=== PATIENT | male | born 1975 | race Caucasian/White ===

== ENCOUNTER 2016-06-10 07:56 | Emergency (ER) | payer SELFPAY ==
[~2016-06-10] VITALS: Ht 172.7 cm; Wt 53.7 kg
[~2016-06-10 07:56] MED LIST: CARB6.5S5 LEFT EAR
[2016-06-10 08:01] VITALS: BP 111/71; PULSE 82; RESP 16; TEMP 98.9; O2SAT 100
[2016-06-10] MEDS ORDERED: BACT800T5 PO (08:19)
--- NOTE | 2016-06-10 08:20 | PD ---
HPI Chief Complaint: Skin Problem Time Seen by Provider: 08:07 Travel History International Travel<30 days: No Contact w/Intl Traveler<30days: No Traveled to known affect area: No History of Present Illness HPI This 40-year-old male is complaining of redness and swelling of his left wrist. He believes he got bit by a spider yesterday. He did not actually see a spider. He was working a long sleeved shirt and his arms over his head and felt a sting. He developed some redness and swelling. He squeezed it and some pus did come out. He says his tetanus is up-to-date PFS Past Medical History Asthma: No Blood Disorders: No Anxiety: Yes Depression: Yes Heart Rhythm Problems: No Cancer: No Cardiovascular Problems: No Chemotherapy: No Chest Pain: No Congestive Heart Failure: No COPD: No Diabetes: No Diminished Hearing: No Endocrine: No Genitourinary: No Hypertension: No Implanted Vascular Access Dvce: No Musculoskeletal: Yes (scoliosis) Neurologic: Yes (MULTIPLE SCLEROSIS) Psychiatric: No Reproductive: No Respiratory: No Immunizations Current: No Radiation Therapy: No Sleep Apnea: No Thyroid Disease: No Tetanus Vaccination: < 5 Years Influenza Vaccination: No Past Surgical History Oral Surgery: Yes (JAW SURGERY AT 4 YEARS OLD--JAW SURGERY 05/29) Other Surgery: Yes (STEEL PLATE IN JAW) Social History Alcohol Use: Yes (occasionally; last drink 2-3 shots liquor ) Tobacco Use: No Substance Use: No (hx cocaine, marijuana;) Allergies-Medications (Allergen,Severity, Reaction): Coded Allergies: No Known Allergies (Verified , 06/10/16) Reported Meds & Prescriptions Reported Meds & Active Scripts Active No Active Prescriptions or Reported Medications Review of Systems General / Constitutional: No: Fever, Chills Eyes: No: Drainage HENT: No: Rhinitis Cardiovascular: No: Chest Pain or Discomfort, Palpitations Respiratory: No: Shortness of Breath Genitourinary: No: Frequency Skin: Positive Rash Neurologic: No: Syncope Hematologic/Lymphatic: No: Easy Bruising Physical Exam Narrative GENERAL: Thin male SKIN: Warm and dry. He has multiple abrasions which he says it skateboarding. On the left forearm there is an area of erythema and minimal swelling. There is no drainage at this time. HEAD: Atraumatic. Normocephalic. EYES: Pupils equal and round. No scleral icterus. No injection or drainage. ENT: No nasal bleeding or discharge. Mucous membranes pink and moist. NECK: Trachea midline. No JVD. MUSCULOSKELETAL: No obvious deformities. No clubbing. No cyanosis. No edema. NEUROLOGICAL: Awake and alert. No obvious cranial nerve deficits. Motor grossly within normal limits. Normal speech. PSYCHIATRIC: Appropriate mood and affect; insight and judgment normal. Data Data Last Documented VS Vital Signs Date Time Temp Pulse Resp B/P Pulse Ox O2 Delivery O2 Flow Rate FiO2 06/10/16 08:01 98.9 82 16 111/71 100 Room Air MDM Medical Decision Making Medical Screen Exam Complete: Yes Emergency Medical Condition: Yes Medical Record Reviewed: Yes Differential Diagnosis Differential includes cellulitis, abscess, spider bite Narrative Course Examination is consistent with cellulitis. There is some mild swelling but I don't think there is a drainable abscess present. He'll be placed on Bactrim Diagnosis Primary Impression: Cellulitis of left arm Additional Instructions: soak affected area in warm water twice daily Scripts Sulfamethoxazole-Trimethoprim (Bactrim DS)800-160 Mg Tab1 Tab PO BID #20 TAB Ref 0 Prov:Darien Azar MD 06/10/16 Disposition: 01 DISCHARGE HOME Condition: Stable Darien Azar MD Jun 10, 2016 08:20
== END 2016-06-10 08:42 | disposition home or self-care (01) ==
LOC: PHEFT 07:56
DX: L03.114 Cellulitis of left upper limb (principal); G35 Multiple sclerosis; M41.9 Scoliosis, unspecified
CPT/HCPCS: 99282

== ENCOUNTER 2016-06-29 15:21 | Inpatient (IN) | payer OTHER ==
[~2016-06-29] VITALS: Ht 175.3 cm; Wt 59.3 kg
[~2016-06-29 15:21] MED LIST changes: +BACT800T5 PO; -CARB6.5S5 LEFT EAR
[2016-06-29 15:34] VITALS: BP 126/78; PULSE 64; RESP 20; TEMP 98.8; O2SAT 97
--- NOTE | 2016-06-29 16:39 | PD ---
HPI Chief Complaint: Psychiatric Symptoms Time Seen by Provider: 16:34 Travel History International Travel<30 days: No Contact w/Intl Traveler<30days: No Traveled to known affect area: No History of Present Illness HPI 40-year-old male that presents to the ED for evaluation of psych. Patient was EXPARTE by police after apparently there was a cut inspection and his residence and apparently they were concerned because they were going to clean and patient became very bizarre and agitated. Patient apparently has no history of psychiatric illness per patient. Per patient he takes care of everything "the natural away ". Per patient he denies any trauma. Patient was seen here 3 had this month for cellulitis and abscess that was drained and he states no problems with it. He does have a history of MS. He denies any weakness. No numbness, tilling, weakness. Denies any medical complaint to me. Takes no medications. Patient denies any drugs or alcohol. No allergies to medication. No other medical problems. Denies any suicidal or homicidal ideation to me but per expected patient used to have some sort of psychiatric counseling. PFSH Past Medical History Asthma: No Blood Disorders: No Anxiety: Yes Depression: Yes Heart Rhythm Problems: No Cancer: No Cardiovascular Problems: No Chemotherapy: No Chest Pain: No Congestive Heart Failure: No COPD: No Diabetes: No Patient Takes Glucophage: No Diminished Hearing: No Endocrine: No Genitourinary: No Hypertension: No Implanted Vascular Access Dvce: No Musculoskeletal: Yes (scoliosis) Neurologic: Yes (MULTIPLE SCLEROSIS) Psychiatric: No Reproductive: No Respiratory: No Immunizations Current: No Radiation Therapy: No Sleep Apnea: No Thyroid Disease: No Tetanus Vaccination: Unknown Past Surgical History Oral Surgery: Yes (wired mandible) Other Surgery: Yes (STEEL PLATE IN JAW) Social History Alcohol Use: No Tobacco Use: No Substance Use: No Allergies-Medications (Allergen,Severity, Reaction): Coded Allergies: No Known Allergies (Verified , 06/10/16) Reported Meds & Prescriptions Reported Meds & Active Scripts Active Review of Systems Except as stated in HPI: all other systems reviewed are Neg Physical Exam Narrative GENERAL: SKIN: Warm and dry. Patient has some old wounds on his arms and legs that appear to be healing. HEAD: Atraumatic. Normocephalic. EYES: Pupils equal and round. No scleral icterus. No injection or drainage. ENT: No nasal bleeding or discharge. Mucous membranes pink and moist. Tongue is midline. No uvula deviation. NECK: Trachea midline. No JVD. CARDIOVASCULAR: Regular rate and rhythm. No murmurs, S3, S4. RESPIRATORY: No accessory muscle use. Clear to auscultation. Breath sounds equal bilaterally. GASTROINTESTINAL: Abdomen soft, non-tender, nondistended. Hepatic and splenic margins not palpable. MUSCULOSKELETAL: Extremities without clubbing, cyanosis, or edema. No obvious deformities. Full range of motion of the upper and lower extremities bilaterally. 2+ pulses bilaterally. NEUROLOGICAL: Awake and alert. No obvious cranial nerve deficits. Motor grossly within normal limits. Five out of 5 muscle strength in the arms and legs. Normal speech. PSYCHIATRIC: Bizarre possibly psychotic mood and affect; insight and judgment questionable at this time. Patient fluctuates between anger and calm. Data Data Last Documented VS Vital Signs Date Time Temp Pulse Resp B/P Pulse Ox O2 Delivery O2 Flow Rate FiO2 06/29/16 15:34 98.8 64 20 126/78 97 Orders Diet Regular Basic (06/29/16 Dinner) Psych Screen (06/29/16 15:33) Complete Blood Count With Diff (06/29/16 15:42) Comprehensive Metabolic Panel (06/29/16 15:42) Drug Screen, Random Urine (06/29/16 15:42) Alcohol (Ethanol) (06/29/16 15:42) MDM Medical Decision Making Medical Screen Exam Complete: Yes Emergency Medical Condition: Yes Medical Record Reviewed: Yes Differential Diagnosis Depression versus suicidal ideation versus anxiety versus adjustment disorder versus mood disorder versus bipolar disorder versus schizophrenia versus paranoid disorder versus psychosis versus substance abuse versus alcohol abuse versus alcohol induced psychosis versus homicidality addition versus cutting versus personality disorder Narrative Course 40-year-old male that presents to the ED for evaluation of psych. Patient was properly examined and was found to have signs and symptoms consistent appears to be psychiatric illness. No sign of acute medical distress. Labs and psych screening order. Patient was medically clear. Okay to be seen by psych. Mental health screening was discussed with the patient. Diagnosis Primary Impression: Mood disorder Victor Manuel Syed Jun 29, 2016 16:39
[2016-06-29 18:15] VITALS: BP 117/65; PULSE 81; RESP 18
[2016-06-29 23:29] VITALS: BP 121/69; PULSE 90; RESP 18; O2SAT 100
[2016-06-30 02:30] VITALS: BP 114/77; PULSE 91; RESP 18; TEMP 97.9; O2SAT 99
[2016-06-30 06:30] VITALS: BP 119/75; PULSE 66; RESP 18; TEMP 97.5; O2SAT 99
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
[2016-06-30 14:00] VITALS: BP 99/64; PULSE 65; RESP 18
[2016-06-30] MEDS ORDERED: MAGNESIUM HYDROXIDE SUSP 30 ML CUP PO PRN (14:00)
[2016-06-30] MEDS ORDERED: ALUMINUM/MAGNESIUM/SIMETH 30 ML CUP PO PRN (14:00)
[2016-06-30] MEDS ORDERED: ACETAMINOPHEN 325 MG TAB PO PRN (14:00)
[2016-06-30 14:35] VITALS: BP 115/68; PULSE 74; RESP 20; TEMP 98; O2SAT 99
[2016-06-30 15:03] VITALS: BP 99/64; PULSE 68; RESP 18
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
[2016-06-30 19:18] VITALS: BP 118/60; PULSE 87; RESP 16; TEMP 98.2; O2SAT 98
[2016-07-01 06:07] VITALS: BP 113/63; PULSE 75; RESP 16; TEMP 98.2; O2SAT 100
[2016-07-01 09:13] LABS: AUTOMATED NEUTROPHIL # 4.9 TH/MM3 (1.8-7.7); BASOPHIL % 0.4 % (0.0-2.0); EOSINOPHIL # 0.3 TH/MM3 (0-0.4); HEMATOCRIT 39.8 % (39.0-51.0); HEMO FLAGS DIFF FINAL; LYMPH % 21.1 % (9.0-44.0); LYMPHOCYTE # 1.5 TH/MM3 (1.0-4.8); MEAN CELL VOLUME 89.7 FL (80.0-100.0); MEAN CORPUSCULAR HEMOGLOBIN 29.5 PG (27.0-34.0); MEAN CORPUSCULAR HGB CONC 32.8 % (32.0-36.0); MONO % 6.5 % (0.0-8.0); PLATELET COUNT 366 TH/MM3 (150-450); RED BLOOD COUNT 4.43 MIL/MM3 (4.50-5.90); WHITE BLOOD COUNT 7.2 TH/MM3 (4.0-11.0)
[2016-07-01 09:49] LABS: ALKALINE PHOSPHATASE 84 U/L (45-117); ALT (GPT) 22 U/L (12-78); ANION GAP 9 MEQ/L (5-15); AST (GOT) 21 U/L (15-37); BICARBONATE 29.4 MEQ/L (21.0-32.0); BLOOD UREA NITROGEN 12 MG/DL (7-18); CHLORIDE 102 MEQ/L (98-107); GLOMERULAR FILTRATION RATE 110 ML/MIN (>89); HDL CHOLESTEROL 57.5 MG/DL (40.0-60.0); LDL CHOLESTEROL 48 MG/DL (0-99); POTASSIUM 4.1 MEQ/L (3.5-5.1); SODIUM (NA) 140 MEQ/L (136-145); TOTAL BILIRUBIN ADULT 0.3 MG/DL (0.2-1.0)
[2016-07-01 10:13] LABS: HEMOGLOBIN A1a 1.2 %; HEMOGLOBIN A1b 0.8 %; HEMOGLOBIN Ao 85.7 %; HEMOGLOBIN LA1C 1.9 %; HEMOGLOBIN P3 3.5 %
--- NOTE | 2016-07-01 12:48 | HHI.PYPN ---
Subjective Remarks Pt seen and discussed with staff. Pt has been refusing labs, vitals and medications. RN reports that pt has been rambling on about artificial intelligence being a tool of the devil and 6. He is quite grandiose during interview and offers to break dance for MD. He admits to hoarding behaviors but states that he doesn't want medications or treatments. "I skateboard. I'm an extremist. I skateboard for [place] and I don't need medications." He denies SI/HI. Objective Alert: Yes [place]: Person, Place, Date, Situation Mood: Other (elevated) Affect: Labile Memory Intact: Comment (not formally tetsed) Hallucinations: Other (denies) Delusions: Yes Delusion Type: Paranoid Suicidal: Ideation (denies) Homicidal: Ideation (denies) Insight/Judgement poor Labs Test 07/01/16 08:53 White Blood Count 7.2 TH/MM3 Red Blood Count 4.43 MIL/MM3 Hemoglobin 13.0 GM/DL Hematocrit 39.8 % Mean Corpuscular Volume 89.7 FL Mean Corpuscular Hemoglobin 29.5 PG Mean Corpuscular Hemoglobin 32.8 % Concent Red Cell Distribution Width 14.0 % Platelet Count 366 TH/MM3 Mean Platelet Volume 7.5 FL Neutrophils (%) (Auto) 68.0 % Lymphocytes (%) (Auto) 21.1 % Monocytes (%) (Auto) 6.5 % Eosinophils (%) (Auto) 4.0 % Basophils (%) (Auto) 0.4 % Neutrophils # (Auto) 4.9 TH/MM3 Lymphocytes # (Auto) 1.5 TH/MM3 Monocytes # (Auto) 0.5 TH/MM3 Eosinophils # (Auto) 0.3 TH/MM3 Basophils # (Auto) 0.0 TH/MM3 CBC Comment DIFF FINAL Differential Comment Sodium Level 140 MEQ/L Potassium Level 4.1 MEQ/L Chloride Level 102 MEQ/L Carbon Dioxide Level 29.4 MEQ/L Anion Gap 9 MEQ/L Blood Urea Nitrogen 12 MG/DL Creatinine 0.78 MG/DL Estimat Glomerular Filtration 110 ML/MIN Rate Random Glucose 73 MG/DL Hemoglobin A1c 5.4 % Calcium Level 8.3 MG/DL Total Bilirubin 0.3 MG/DL Aspartate Amino Transf 21 U/L (AST/SGOT) Alanine Aminotransferase 22 U/L (ALT/SGPT) Alkaline Phosphatase 84 U/L Total Protein 6.8 GM/DL Albumin 3.2 GM/DL Triglycerides Level 64 MG/DL Cholesterol Level 118 MG/DL LDL Cholesterol 48 MG/DL HDL Cholesterol 57.5 MG/DL Cholesterol/HDL Ratio 2.05 RATIO Ethyl Alcohol Level LESS THAN 3 MG/DL Vitals/IOs Vital Signs Date Time Temp Pulse Resp B/P Pulse Ox O2 Delivery O2 Flow Rate FiO2 07/01/16 06:07 98.2 75 16 113/63 100 06/30/16 15:03 Room Air Assessment & Plan Problem List: (1) schizo affective dis. Bipolar type Assessment & Plan Continue to encourage treatment compliance. Estimated LOS: days Justification for Cont. Inpt. impairments in reality construction and safety Request HC Surrog/Guard Advoc?: Jenny Nguyen MD Jul 01, 2016 12:48
[2016-07-01 19:37] VITALS: BP 109/72; PULSE 82; RESP 17; TEMP 98; O2SAT 100
[2016-07-02 05:30] VITALS: BP 116/65; PULSE 66; RESP 18; TEMP 97.7
[2016-07-02 07:43] LABS: AMPHETAMINE, URINE NEG (NEG); BARBITURATES, URINE NEG (NEG); COCAINE, URINE NEG (NEG)
--- NOTE | 2016-07-02 11:30 | HHI.PYPN ---
Subjective Remarks Patient seen and examined with counselor. Chart reviewed. I note the patient was brought in initially under an ex parte order initiated by his mother. I have reviewed disorder in some detail. Case discussed with nursing staff who reports patient has been break dancing and generally engaging in manic behavior on the unit. On my examination today, the patient presents as fairly dysphoric and irritable. He denies the allegations in the ex parte order and says that if there are any issues in the home its caused by his parents. He threatens violence if people do not "stay out of my [employer] business." He says that his daughter and girlfriend 5 years ago, which apparently is factual, but he has developed a delusional frame around this, perseverating on the number 3, noting, "#3 is the father, son and holy ghost. Han Waters was #3. He on a Saturday and my daughter on a Saturday. My girlfriend had 3 heart attacks." He also blames [facility] for both his daughter and girlfriend's passing, believing that they are engaged in some sort of coverup, "like worldhistory[employer]." His insight into mental illness is nil, and he says that he will decline any psychotropic medications. Review of Systems ROS Limitations: Psychotic, Poor Historian Other No physical complaints today Objective Alert: Yes [place]: Person, Place, Date Mood: Angry, Other (irritable) Affect: Restricted (dysphoric) Memory Intact: Comment (not formally assessed today) Hallucinations: Other (none) Delusions: Yes Delusion Type: Paranoid (ongoing, systematized) Suicidal: Ideation (denies) Homicidal: Ideation (denies) Insight/Judgement Poor Remarks No motoric abnormalities noted. Thought process fairly linear within delusional system. Speech a little bit loud and angry. Labs Test 07/02/16 07:00 Urine Opiates Screen NEG Urine Barbiturates Screen NEG Urine Amphetamines Screen NEG Urine Benzodiazepines Screen NEG Urine Cocaine Screen NEG Urine Cannabinoids Screen NEG Labs reviewed. Vitals/IOs Vital Signs Date Time Temp Pulse Resp B/P Pulse Ox O2 Delivery O2 Flow Rate FiO2 07/02/16 05:30 97.7 66 18 116/65 07/01/16 19:37 100 1/21/17 15:03 Room Air Assessment & Plan Problem List: (1) Bipolar disorder Assessment & Plan: Rule out schizoaffective disorder, bipolar type ICD Code: F31.9 Assessment & Plan The form of patient's mental illness presently seems to be a mixed state, severely decompensated with psychotic features. I do see that Dr. Oh diagnosed schizoaffective disorder, and this may prove to be the true diagnosis , but for the time being I will give the patient bipolar disorder with a rule out of schizoaffective disorder. I will initiate a petition for involuntary psychiatric hospitalization in consult for a second. I will request a healthcare surrogate and guardian advocate. I will initiate Zyprexa 10 mg at bedtime I mouth with IM backup. I will also start Ativan and Benadryl as needed for agitation and EPS, respectively. Continue other medications and care as ordered. Justification for Cont. Inpt. Impairments in safety, reality construction, social functioning, medication changes and process, high risk for decompensation in a less restrictive environment. Discharge Planning Pending psychiatric stabilization Request HC Surrog/Guard Advoc?: Yes Problem Qualifiers (1) Bipolar disorder: Qualified Code: F31.64 - Bipolar disorder, current episode mixed, severe, with psychotic features Donald Campos MD Jul 02, 2016 11:30
[2016-07-02] MEDS ORDERED: LORazepam 2 MG/ML VIAL IM PRN (13:15)
[2016-07-02] MEDS ORDERED: diphenhydrAMINE HCL 50 MG/ML VIAL IM PRN (13:15)
[2016-07-02] MEDS ORDERED: LORazepam 1 MG TAB PO PRN (13:15)
[2016-07-02] MEDS ORDERED: diphenhydrAMINE HCL 50 MG CAP PO PRN (13:15)
[2016-07-02] MEDS ORDERED: OLANZapine IM 10 MG VIAL IM PRN (13:15)
[2016-07-02 20:32] VITALS: BP 106/56; PULSE 74; RESP 18; TEMP 98; O2SAT 96
[2016-07-02] MEDS: OLANZapine ODT 10 MG TAB PO SCH (21:00)
[2016-07-03 05:58] VITALS: BP 103/64; PULSE 77; RESP 18; TEMP 98; O2SAT 96
[2016-07-03] MEDS ORDERED: diphenhydrAMINE HCL 50 MG/ML VIAL IM STA (07:45)
[2016-07-03] MEDS ORDERED: LORazepam 2 MG/ML VIAL IM STA (07:45)
[2016-07-03] MEDS ORDERED: OLANZapine IM 10 MG VIAL IM STA (07:45)
--- NOTE | 2016-07-03 07:56 | PD.CONS ---
Provisional Diagnosis Admission Date Jun 30, 2016 at 13:59 [place] I. Schizoaffective disorder Rap[place] II. Paranoid trait Rapidan III. Please see the emergency room evaluation Rap[place] IV. Moderate stress Rapidan V. GAF of 45 History of Present Illness Service Psychiatry Consult Requested By Primary Care Physician No Primary Care Physician HPI This is a 40-year-old white male who was admitted under ex parte today initiated by his mother reportedly patient has history of mood swings he has threatened the court enforcement officers stating that he will be discharged out of them. He wants to also kill himself. Patient has been getting easily agitated and is not cooperative and refuses to take the medication and/or cooperative with the lab work. Reportedly most of the night he spent talking to himself and singing and pacing in his room. Patient reported that his his family drives in [place] crazy. And his mother is also crazy woman. 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 Patient also was preoccupied about the of his daughter and his girlfriend. Patient was pretty occupied about #3 and #6. Mormonism and devil. He does not want to stay in the hospital he wanted to leave because he believes that his mother is going to sell things that belongs to him. Patient denied any suicidal and/or homicidal ideation intentions or plan but according to the ex parte he had threatened the last code striper. Patient claimed that in the past he had taken Zoloft. But he does not wish to take any medication. He has multiple sclerosis. And had taken steroids to calm the inflammation of his eyes down. 07/03/16 Above note dictated by Dr. Campos reviewed and agreed with. Patient 40-year- old white male admitted to Dr. Campos service under the [place] act. Chart reviewed. Patient seen by me in his room on the short haul unit 2700 patient loud profane markedly paranoid screaming and yelling the "F" word multiple times threatening to "beat this shit" out of me if I kept bothering him. Dr. Campos 's sign first opinion petition supporting [place]. I agree patient meets criteria for involuntary psychiatric hospitalization under the [place]. Thus I will cosign second opinion petition supporting [place] Past Family Social History Coded Allergies: No Known Allergies (Verified , 06/10/16) Discontinued Scripts Sulfamethoxazole-Trimethoprim (Bactrim DS)800-160 Mg Tab1 Tab PO BID #20 TAB Ref 0 Prov:Darien Azar MD 06/10/16 Current Medications Medications (Trade) Dose Ordered Sig/Александр Route Start Time Stop Time Status Last Admin (Tylenol) 650 mg Q4H PRN PO 06/30/16 14:00 (Milk Of Magnesia Liq) 30 ml DAILY PRN PO 06/30/16 14:00 (Mag-Al Plus Susp Liq) 30 ml Q6H PRN PO 06/30/16 14:00 (Ativan) 1 mg Q6H PRN PO 07/02/16 13:15 (Ativan Inj) 1 mg Q6H PRN IM 07/02/16 13:15 (Benadryl) 50 mg Q6H PRN PO 07/02/16 13:15 (Benadryl Inj) 50 mg Q6H PRN IM 07/02/16 13:15 (ZyPREXA ZYDIS ODT) 10 mg HS PO 07/02/16 21:00 (ZyPREXA INJ) 10 mg HS PRN IM 07/02/16 13:15 Patient's Strengths (min. 2) Patient is verbal and partially cooperative Physical Exam Vital Signs Vital Signs Date Time Temp Pulse Resp B/P Pulse Ox O2 Delivery O2 Flow Rate FiO2 07/03/16 05:58 98.0 77 18 103/64 96 06/30/16 15:03 Room Air Mental Status Examination Alert angry markedly profane threatening intimidating thin slender short white male with intense eye contact loud with rapid pressured speech Appearance Somewhat disheveled Speech: Pressured, Rapid, Tangential Orientation: Person, Place Memory: Unremarkable Thought Process: Linear Thought Content: Paranoid Hallucination Type: None (denies) Attention and Concentration: Easily Distracted Suicidal Ideation: No (denies) Previous Suicide Attempts: No Homicidal Ideation: Yes (made threatening statements towards me) Previous Homicide Attempts: No (denies) Insight: Poor Judgement: Poor Affect: Other (marked increase range and intensity) Mood: Angry, Irritable, Manic Motor Activity: Normal gait Assessment & Plan Problem List: (1) Bipolar disorder ICD Code: F31.9 Assessment & Plan Estimated LOS: days Request HC Surrog/Guard Advoc?: Yes Problem Qualifiers (1) Bipolar disorder: Qualified Code: F31.64 - Bipolar disorder, current episode mixed, severe, with psychotic features Bret Neal MD Jul 03, 2016 07:56
--- NOTE | 2016-07-03 09:12 | HHI.PYPN ---
Subjective Remarks Patient seen and examined with counselor. Chart reviewed. Case discussed in treatment team. Per nursing staff, patient became severely agitated when Dr. Neal was in earlier today to do the second opinion for involuntary psychiatric hospitalization, and the patient required medication with Zyprexa ETO. Per occupational therapy, the patient has been unable to tolerate groups because of his degree of psychiatric impairment. On my examination this morning , the patient is fairly sedated, likely as a consequence of the ETO he received. He is in no acute physical distress and his breathing is unlabored. He arouses briefly to voice before lapsing back to sleep. I did endeavor with counselor to reach out to patient's aunt, Ms. Velez, as well as mother, whose number is listed in the ex parte as [phone]. In the former case there was no answer. In the latter case, an older-sounding female answered but said that she had initiated an ex parte order against her , a Mr. Hedrick. We did not give this female any identifying information regarding the patient. Review of Systems ROS Limitations: Other (Sedated) Other Unable to obtain. Objective Alert: No (sedated) [place]: Person (arouses to name) Mood: Other (Unable to ascertain) Affect: Flat Memory Intact: Comment (Not assessed) Hallucinations: Other (Unable to ascertain) Delusions: No Delusion Type: Other (Unable to ascertain) Suicidal: Ideation (Unable to ascertain) Homicidal: Ideation (Unable to ascertain) Insight/Judgement Presently absent Remarks No motoric abnormalities noted. Patient is in no physical distress. Labs Labs reviewed. Vitals/IOs Vital Signs Date Time Temp Pulse Resp B/P Pulse Ox O2 Delivery O2 Flow Rate FiO2 07/03/16 05:58 98.0 77 18 103/64 96 06/30/16 15:03 Room Air Assessment & Plan Problem List: (1) Bipolar disorder ICD Code: F31.9 Assessment & Plan Awaiting consents for scheduled psychotropics. We will continue to try to obtain an HCS and collateral. Continue other care as ordered. Justification for Cont. Inpt. Impairments in safety, social function, reality construction. Risk for decompensation. Discharge Planning Pending psychiatric stabilization. Request HC Surrog/Guard Advoc?: Yes Problem Qualifiers (1) Bipolar disorder: Qualified Code: F31.64 - Bipolar disorder, current episode mixed, severe, with psychotic features Donald Campos MD Jul 03, 2016 09:12
[2016-07-03 18:14] VITALS: BP 92/56; PULSE 69; RESP 17; O2SAT 100
[2016-07-03] MEDS: OLANZapine ODT 10 MG TAB PO SCH (21:00)
[2016-07-04 06:12] VITALS: BP 120/59; PULSE 67; RESP 16; TEMP 98.5; O2SAT 100
--- NOTE | 2016-07-04 11:31 | HHI.PYPN ---
Subjective Remarks Patient seen and examined with counselor. Chart reviewed. Scheduled Zyprexa was not administered last night due to sedation, likely from the ETO he received yesterday during the day. Case discussed with nursing staff who reports patient remains quite irritable but is visible on the unit. On my examination today, the patient presents as paranoid and still fairly irritable. He continues to perseverate on the role of the number 3 "at certain moments in my life." Believes that treatment team is in cahoots with [facility], which organization he blames for his daughter's . No evident side effects from medications at this time. Review of Systems ROS Limitations: Poor Historian Other No physical complaints today. Objective Alert: Yes [place]: Person, Place Mood: Angry, Oppositional Affect: Restricted (dysphoric, irritable) Memory Intact: Comment (Not formally assessed) Hallucinations: Other (No AVH) Delusions: Yes Delusion Type: Paranoid Suicidal: Ideation (No SI voiced but unreliable to contract for safety.) Homicidal: Ideation (No HI voiced) Insight/Judgement Poor Remarks No abnormal motor movements noted. TP linear within delusional system. Speech terse, angry. Labs Labs reviewed. No new labs. Vitals/IOs Vital Signs Date Time Temp Pulse Resp B/P Pulse Ox O2 Delivery O2 Flow Rate FiO2 07/04/16 06:12 98.5 67 16 120/59 100 06/30/16 15:03 Room Air Assessment & Plan Problem List: (1) Bipolar disorder ICD Code: F31.9 Assessment & Plan Administer first scheduled dose of Zyprexa tonight with plans to titrate so long as this is not too sedating in the morning. If it is, we could consider dividing the dose. Continue other medications and care as ordered. Justification for Cont. Inpt. Concern for safety impairments. Impairment in social function. Risk for decompensation. Discharge Planning Pending psychiatric stabilization. [place] court tomorrow. Request HC Surrog/Guard Advoc?: Yes Problem Qualifiers (1) Bipolar disorder: Qualified Code: F31.64 - Bipolar disorder, current episode mixed, severe, with psychotic features Donald Campos MD Jul 04, 2016 11:31
[2016-07-04 19:48] VITALS: BP 101/50; PULSE 83; RESP 16; TEMP 98.7
[2016-07-04] MEDS: OLANZapine ODT 10 MG TAB PO SCH (20:17)
[2016-07-05 06:01] VITALS: BP 105/66; PULSE 92; RESP 18; TEMP 98.3
--- NOTE | 2016-07-05 11:10 | HHI.DS ---
Psychiatry Discharge Summary Inpatient Psychiatric care?: Yes Advance Directive: No Reason Not Provided: DOES NOT HAVE Mental Health AdvanceDirective: No Health Care Proxy: No Admission Admission Date Jun 30, 2016 at 13:59 Admission Diagnosis: (1) schizo affective dis. Bipolar type Brief History This is a 40-year-old white male who was admitted under ex parte today initiated by his mother reportedly patient has history of mood swings he has threatened the court enforcement officers stating that he will be discharged out of them. He wants to also kill himself. Patient has been getting easily agitated and is not cooperative and refuses to take the medication and/or cooperative with the lab work. Reportedly most of the night he spent talking to himself and singing and pacing in his room. Patient reported that his his family drives in [place] crazy. And his mother is also crazy woman. 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 Patient also was preoccupied about the of his daughter and his girlfriend. Patient was pretty occupied about #3 and #6. Synagogue and devil. He does not want to stay in the hospital he wanted to leave because he believes that his mother is going to sell things that belongs to him. Patient denied any suicidal and/or homicidal ideation intentions or plan but according to the ex parte he had threatened the code and test clerk. Patient claimed that in the past he had taken Zoloft. But he does not wish to take any medication. He has multiple sclerosis. And had taken steroids to calm the inflammation of his eyes down. 07/03/16 Above note dictated by Dr. Campos reviewed and agreed with. Patient 40-year- old white male admitted to Dr. Campos service under the [place] act. Chart reviewed. Patient seen by me in his room on the short haul unit 2700 patient loud profane markedly paranoid screaming and yelling the "F" word multiple times threatening to "beat this shit" out of me if I kept bothering him. Dr. Campos 's sign first opinion petition supporting [place]. I agree patient meets criteria for involuntary psychiatric hospitalization under the [place] act. Thus I will cosign second opinion petition supporting [place] Tobacco Use In Past 30 Days: Refused To Answer Alcohol Use: Never (Per Dr. Rosas's note, h/o alcohol abuse) Hospital Course Patient was admitted to a locked, inpatient psychiatric unit. Appropriate precautions were in place throughout patient's hospital stay. Patient was seen and examined daily on the unit by psychiatry and also visited by counselor. Patient declined psychotropic medications and received none except what he was given by emergency treatment order. He remained paranoid and quite irritable on the unit. His insight into mental illness was quite poor. The patient's case was presented to the [place] court today and the presiding judge has ordered his release from the inpatient psychiatric unit. I have lodged my grave objection to this decision in the record as I feel that the patient's irritability and ongoing psychosis placed him at elevated risk for harm to others in the community. The patient is unwilling to remain on the inpatient psychiatric unit voluntarily and so will be discharged AGAINST MEDICAL ADVICE today by court order. Results Blood Pressure 105 / 66 Vital Signs Date Time Temp Pulse Resp B/P Pulse Ox O2 Delivery O2 Flow Rate FiO2 07/05/16 06:01 98.3 92 18 105/66 07/04/16 06:12 100 Laboratory Results Test 07/01/16 08:53 Hemoglobin A1c 5.4 % (4.3-6.0) Triglycerides Level 64 MG/DL (42-150) Cholesterol Level 118 MG/DL (120-200) LDL Cholesterol 48 MG/DL (0-99) HDL Cholesterol 57.5 MG/DL (40.0-60.0) Summary of Procedures None done Imaging None done Pending results at discharge: No Medications # of Antipsychotic meds at D/C: 0 Approp Antipsych med options 1 - Minimum of three failed multiple trials of monotherapy. 2 - Documented plan to taper to monotherapy due to previous use of multiple meds OR cross-taper in progress at D/C. 3 - Documentation of augmentation of Clozapine. 4 - Justification other than those listed in allowable values 1-3, document here : Discharge Discharge Date: Jul 05, 2016 Discharge Diagnosis: (1) Bipolar disorder ICD Code: F31.9 Rule out schizoaffective disorder, bipolar type Mental Status Exam at Disch Patient is casually dressed. He is somewhat disheveled but appears to be maintaining basic hygiene. He is awake and alert and oriented to person and hospital at least. No abnormal motor movements noted although the patient is somewhat hyperkinetic and begins to dance frenetically on the unit once he learns that he is to be discharged. Speech is somewhat terse. Mood is dysphoric and affect is restricted and irritable. Thought process linear. Paranoid delusions persist. The patient reports no AVH. He does not describe any suicidal or homicidal ideation but is unreliable to contract for safety in my opinion. Insight and judgment, I fear, are poor. Pt Condition on Discharge: Guarded Discharge Disposition: Discharge Home Discharge Instructions Diet Instructions: As Tolerated, No Restrictions Activities you can perform: Weight Bearing as Eezkiel Scheduled Appointment: refuses Discharge Time <= 30 minutes Discharge/Advance Care Plan Health Problems: (1) Bipolar disorder Goals to promote your health * To prevent worsening of your condition and complications * To maintain your health at the optimal level Directions to meet your goals Take your medications as prescribed Follow your dietary instruction Follow activity as directed Keep your appointments as scheduled Take your immunizations and boosters as scheduled If your symptoms worsen call your PCP, if no PCP go to Urgent Care Center or Emergency Room For 31/12 questions related to your inpatient stay or results of tests pending at discharge, please contact Dr. Donald Campos at Smoking is Dangerous to Your Health. Avoid second hand smoking Problem Qualifiers (1) Bipolar disorder: Qualified Code: F31.64 - Bipolar disorder, current episode mixed, severe, with psychotic features Donald Campos MD Jul 05, 2016 11:10
== END 2016-07-05 12:10 | disposition left against medical advice (07) | DRG 885 ==
LOC: NEPJ 15:21 → NEDA 06-30 13:59 → H270 06-30 14:25
PROVIDERS: ADMIT Psychiatry & Neurology Psychiatry; ATTEND Psychiatry & Neurology Psychiatry
DX: F25.0 Schizoaffective disorder, bipolar type (principal); G35 Multiple sclerosis; F11.10 Opioid abuse, uncomplicated; M41.9 Scoliosis, unspecified; F10.10 Alcohol abuse, uncomplicated; F14.10 Cocaine abuse, uncomplicated; Z62.810 Personal history of physical and sexual abuse in childhood; Y90.0 Blood alcohol level of less than 20 mg/100 ml
CPT/HCPCS: 80053; 80061; 80307; 80320; 83036; 85025; 99284; J1200; J2060

== ENCOUNTER 2017-05-01 11:35 | Emergency (ER) | payer SELFPAY ==
[~2017-05-01] VITALS: Ht 172.7 cm; Wt 57.8 kg
[2017-05-01 11:47] VITALS: BP 116/72; PULSE 71; RESP 18; TEMP 98.3; O2SAT 96
--- NOTE | 2017-05-01 13:13 | RADRPT ---
EXAM DATE/TIME: 05/01/2017 12:46 [facility] COMPARISON: FOREARM RIGHT (2VWS), October 08, 2015, 21:21. INDICATIONS : Right forearm pain and laceration, cut on a piece of fiber glass. MEDICAL HISTORY : Multiple sclerosis. rt foream fx, rt wrist fx SURGICAL HISTORY : None. ENCOUNTER: Initial ACUITY: 1 day PAIN SCORE: 7/10 LOCATION: Right forearm FINDINGS: Acute fracture is not seen. There is a healed fracture deformity at the mid radius. Also appears be s ome deformity from healed fracture at the fifth metacarpal. The elbow and wrist joints are normally a ligned. Some hypertrophic change at the base of the first metacarpal. No foreign body seen. CONCLUSION: No acute abnormality is seen. There is chronic change described above. Bret Rangel MD on May 01, 2017 at 13:10 Board Certified Radiologist. This report was verified electronically.
--- NOTE | 2017-05-01 13:51 | PD ---
HPI Chief Complaint: Laceration/Skin Injury Time Seen by Provider: 12:44 Travel History International Travel<30 days: No Contact w/Intl Traveler<30days: No Traveled to known affect area: No History of Present Illness HPI 41-year-old male here with laceration to his right upper extremity caused by broken plexiglass. Patient has an approximately 2 cm flap laceration to the right forearm volar aspect. Patient has full range of motion and normal sensation of the extremity. Bleeding is well-controlled. PFSH Past Medical History Asthma: No Blood Disorders: No Anxiety: Yes Depression: Yes Heart Rhythm Problems: No Chemotherapy: No Chest Pain: No Congestive Heart Failure: No COPD: No Diminished Hearing: No Endocrine: No Genitourinary: No Hypertension: No Implanted Vascular Access Dvce: Yes Musculoskeletal: Yes (scoliosis) Neurologic: Yes (MULTIPLE SCLEROSIS) Psychiatric: Yes (PTSD) Reproductive: No Respiratory: No Immunizations Current: No Radiation Therapy: No Sleep Apnea: No Thyroid Disease: No Tetanus Vaccination: Unknown Influenza Vaccination: No Past Surgical History Oral Surgery: Yes (wired mandible) Other Surgery: Yes (STEEL PLATE IN JAW) Social History Alcohol Use: No Tobacco Use: No Substance Use: No (Former smoking of cocaine and meth) Allergies-Medications (Allergen,Severity, Reaction): Coded Allergies: No Known Allergies (Verified Adverse Reaction, Unknown, 05/01/17) Reported Meds & Prescriptions Reported Meds & Active Scripts Active No Active Prescriptions or Reported Medications Review of Systems Except as stated in HPI: all other systems reviewed are Neg Physical Exam Narrative GENERAL: Well-nourished, well-developed patient. SKIN: Focused skin assessment warm/dry. HEAD: Normocephalic. EYES: No scleral icterus. No injection or drainage. NECK: Supple, trachea midline. No JVD or lymphadenopathy. CARDIOVASCULAR: Regular rate and rhythm without murmurs, gallops, or rubs. RESPIRATORY: Breath sounds equal bilaterally. No accessory muscle use. GASTROINTESTINAL: Abdomen soft, non-tender, nondistended. MUSCULOSKELETAL: No cyanosis, or edema. Attention to the right upper extremity 2 cm flap laceration to the forearm volar aspect. No underlying tendon or vascular injury. Patient has full range of motion and normal sensation of the wrist and fingers. Data Data Last Documented VS Vital Signs Date Time Temp Pulse Resp B/P (MAP) Pulse Ox O2 Delivery O2 Flow Rate FiO2 05/01/17 11:47 98.3 71 18 116/72 (87) 96 Orders Orders Forearm (2vws) (05/01/17 ) MDM Medical Decision Making Medical Screen Exam Complete: Yes Emergency Medical Condition: Yes Differential Diagnosis Laceration, tendon laceration, abrasion or retained foreign body Narrative Course 41-year-old male here with laceration to his right upper extremity caused by broken plexiglass. Patient has an approximately 2 cm flap laceration to the right forearm volar aspect. There is no underlying tendon or vascular injury. Patient has full range of motion and normal sensation distal from the laceration. X-ray was negative for retained foreign body. Laceration repair performed. Patient tolerated procedure well. Procedures Procedure Narrative LACERATION LOCATION: Right forearm LENGTH: 2 cm flap lack NUMBER OF STITCHES/MARIALUISA: 3 REPAIR: The area of the laceration was prepped with Betadine and sterilely draped. The laceration was infiltrated with 1% lidocaine. The wound was copiously irrigated and explored without evidence of foreign body, tendon injury or neurovascular injury. The wound was closed using 4-0 Prolene. This was a single layer repair. A sterile dressing was applied. The patient was advised to keep the dressing clean and dry. Patient tolerated the procedure well. Diagnosis Primary Impression: Laceration of right upper extremity Qualified Codes: S41.111A - Laceration without foreign body of right upper arm , initial encounter Referrals: [facility] Additional Instructions: Sutures need to be removed in 7-10 days. Cleansed the area daily with soap and water. Return to the emergency department if he developed new or worsening symptoms. Scripts No Active Prescriptions or Reported Meds Disposition: 01 DISCHARGE HOME Condition: Stable RockchavezYessy ALLISON May 01, 2017 13:51
== END 2017-05-01 14:00 | disposition home or self-care (01) ==
LOC: PHEFT 11:35
DX: S51.811A Laceration without foreign body of right forearm, initial encounter (principal); F43.10 Post-traumatic stress disorder, unspecified; G35 Multiple sclerosis; W25.XXXA Contact with sharp glass, initial encounter
CPT/HCPCS: 12001; 73090

== ENCOUNTER 2017-06-03 11:53 | Emergency (ER) | payer SELFPAY ==
[~2017-06-03] VITALS: Ht 172.7 cm; Wt 55.0 kg
[2017-06-03 12:08] VITALS: BP 125/81; PULSE 88; RESP 18; TEMP 98.1; O2SAT 99
[2017-06-03] MEDS ORDERED: TETANUS/DIPHTHERIA TOXOID ADULT 0.5 ML VIAL IM ONE (12:15)
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
[2017-06-03] MEDS ORDERED: MORPHINE SULFATE 2 MG/ML INJ IV PUSH ONE (14:00)
[2017-06-03] MEDS ORDERED: AMPICILLIN-SULBACTAM INJ 3 GM in SODIUM CHLORIDE 0.9% INJ 100 ML IV ONE (14:00)
[2017-06-03] MEDS ORDERED: AUGM875T3 PO (14:11)
[2017-06-03] MEDS ORDERED: PERC5TAB12 PO (14:11)
[2017-06-03] MEDS ORDERED: IBUP1TAB7 PO (14:11)
== END 2017-06-03 15:11 | disposition home or self-care (01) ==
LOC: NEPD 11:53
DX: S02.40FB Zygomatic fracture, left side, initial encounter for open fracture (principal); S02.40DA Maxillary fracture, left side, initial encounter for closed fracture; Y04.0XXA Assault by unarmed brawl or fight, initial encounter; M54.2 Cervicalgia; F32.9 Major depressive disorder, single episode, unspecified; G35 Multiple sclerosis; F43.10 Post-traumatic stress disorder, unspecified; M41.9 Scoliosis, unspecified
CPT/HCPCS: 70450; 70486; 72125; 90471; 90714; 96374; 99285; J0295; J2270

== ENCOUNTER 2017-08-03 13:47 | Emergency (ER) | payer SELFPAY ==
[~2017-08-03] VITALS: Ht 172.7 cm; Wt 60.0 kg
[~2017-08-03 13:47] MED LIST changes: +AUGM875T3 PO; -BACT800T5 PO; +IBUP1TAB7 PO; +PERC5TAB12 PO
[2017-08-03 13:54] VITALS: BP 111/61; PULSE 64; RESP 16; TEMP 98.6; O2SAT 97
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
[2017-08-03] MEDS ORDERED: IBUP1TAB7 PO (15:27)
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
== END 2017-08-03 16:01 | disposition home or self-care (01) ==
LOC: PHED 13:47
DX: M70.41 Prepatellar bursitis, right knee (principal); L40.9 Psoriasis, unspecified; G35 Multiple sclerosis; M41.9 Scoliosis, unspecified; F32.9 Major depressive disorder, single episode, unspecified; F43.10 Post-traumatic stress disorder, unspecified; V19.9XXA Pedal cyclist (driver) (passenger) injured in unspecified traffic accident, initial encounter; Y93.55 Activity, bike riding
CPT/HCPCS: 27301; 73564

== ENCOUNTER 2017-08-04 13:13 | Emergency (ER) | payer SELFPAY ==
[~2017-08-04] VITALS: Ht 172.7 cm; Wt 59.9 kg
[2017-08-04 13:24] VITALS: BP 104/65; PULSE 57; RESP 18; TEMP 98.4; O2SAT 98
--- NOTE | 2017-08-04 14:20 | PD ---
HPI Chief Complaint: Edema Time Seen by Provider: 14:03 Travel History International Travel<30 days: No Contact w/Intl Traveler<30days: No Traveled to known affect area: No History of Present Illness HPI 41-year-old male here requesting that his right knee be "drained". He was seen yesterday and evaluated for bursitis after a fall onto his right knee. He had an x-ray which is negative for fracture. Arthrocentesis was performed. He reports the area swelled again and is requesting free drainage. He denies increased pain. No redness or pain at the site. No fever or chills. He was discharged home with a knee immobilizer and is not currently wearing it. He was prescribed ibuprofen but has not taken any. PFSH Past Medical History Asthma: No Blood Disorders: No Anxiety: Yes Depression: Yes Heart Rhythm Problems: No Chemotherapy: No Chest Pain: No Congestive Heart Failure: No COPD: No Diminished Hearing: No Endocrine: No Genitourinary: No Hypertension: No Implanted Vascular Access Dvce: Yes Musculoskeletal: Yes (scoliosis) Neurologic: Yes (MULTIPLE SCLEROSIS) Psychiatric: Yes (PTSD) Reproductive: No Respiratory: No Immunizations Current: No Radiation Therapy: No Sleep Apnea: No Thyroid Disease: No Influenza Vaccination: No Past Surgical History Oral Surgery: Yes (wired mandible) Other Surgery: Yes (STEEL PLATE IN JAW) Social History Alcohol Use: No Tobacco Use: No Substance Use: No (Former smoking of cocaine and meth) Allergies-Medications (Allergen,Severity, Reaction): Coded Allergies: No Known Allergies (Verified Adverse Reaction, Unknown, 08/04/17) Reported Meds & Prescriptions Reported Meds & Active Scripts Active No Active Prescriptions or Reported Medications Review of Systems Except as stated in HPI: all other systems reviewed are Neg General / Constitutional: No: Fever Eyes: No: Visual changes HENT: No: Headaches Cardiovascular: No: Chest Pain or Discomfort Respiratory: No: Shortness of Breath Gastrointestinal: No: Abdominal Pain Genitourinary: No: Dysuria Physical Exam Narrative GENERAL: Well-appearing 41-year-old male. No distress. SKIN: Warm and dry. HEAD: Normocephalic. EYES: No scleral icterus. No injection or drainage. NECK: Supple. MUSCULOSKELETAL: No cyanosis. Right lower extremity: Mild to moderate swelling of the suprapatellar bursa. No overlying erythema or warmth. Patient freely flex and extend the knee. 2+ distal pulses. Normal sensation. Brisk cap refill. Data Data Last Documented VS Vital Signs Date Time Temp Pulse Resp B/P (MAP) Pulse Ox O2 Delivery O2 Flow Rate FiO2 08/04/17 13:24 98.4 57 18 104/65 (78) 98 MDM Medical Decision Making Medical Screen Exam Complete: Yes Emergency Medical Condition: Yes Differential Diagnosis Bursitis, joint effusion, septic joint unlikely Narrative Course 41-year-old male here requesting his right knee be drained. He was diagnosed with bursitis yesterday and had the knee drained. He was sent home with splint and NSAIDs which she did not comply with either. There is no evidence of infection. That the knee would not be drained at today's visit. He is to immobilize any as directed. NSAIDs as directed. Follow up with primary care or ortho. Diagnosis Primary Impression: Bursitis Qualified Codes: M71.9 - Bursopathy, unspecified Referrals: Primary Care Physician Additional Instructions: Ibuprofen 800 mg (4 tablets) every 6 hours as needed for pain and swelling. Where the Carlo wrap as directed. Follow-up primary care orthopedic doctor. Scripts No Active Prescriptions or Reported Meds Disposition: 01 DISCHARGE HOME Condition: Stable Yessy Montgomery Aug 04, 2017 14:20
[2017-08-04] MEDS ORDERED: IBUPROFEN 800 MG TAB PO ONE (14:30)
== END 2017-08-04 14:37 | disposition home or self-care (01) ==
LOC: PHEFT 13:13
DX: M70.51 Other bursitis of knee, right knee (principal); F32.9 Major depressive disorder, single episode, unspecified; F41.9 Anxiety disorder, unspecified; M41.9 Scoliosis, unspecified; G35 Multiple sclerosis; F43.10 Post-traumatic stress disorder, unspecified
CPT/HCPCS: 99282